=== PATIENT | female | born 1960 | race Caucasian/White ===

== ENCOUNTER → 2016-08-14 | Outpatient (CLI) | payer BC ==
[~2016-08-14] MED LIST: ASCORBIC ACID100 MG PO; CVS OMEGA-3 KR1 EACH PO; HARD NAILS2500 MCG PO; MULTIVITAMIN1 EAC2 PO; ROBITUSSIN DM118 ML PO; TYLENOL REGULA325 MG PO
== END | disposition home or self-care (01) ==
LOC: MRI 07:23 → RAD 08:00 → MRI 08:00
DX: M25.561 Pain in right knee (principal)
CPT/HCPCS: 73721